=== PATIENT | female | born 1995 | race African-American/Black ===

== ENCOUNTER 2020-05-19 23:02 | Emergency (ER) | payer OTHER ==
[2020-05-19 23:16] VITALS: BP 126/74
--- NOTE | 2020-05-20 00:09 | ER Document Report ---
HPI - HPI Time Seen by Provider: 05/19/20 23:58 Context: Patient is a 24-year-old female who comes emergency department for chief complaint of a generalized rash over her legs mainly over the thighs, arms mainly over the flexural surfaces, and over the abdomen and back. Rash is also slightly over the chest but not over the head/face. Rash is very itchy and has been present intermittently since late (over 6 weeks ago) but is worse now. Patient denies any other complaints although she denies having any rash similar to this in the past. She is not on any daily medications. She is currently breast-feeding. Past Medical History - General Information source: Patient - Social History Smoking Status: Never Smoker Frequency of alcohol use: None Drug Abuse: None Lives with: Family Family History: Reviewed & Not Pertinent - Medical History Medical History: Negative Surgical Hx: Negative - Immunizations Immunizations up to date: Yes Hx Diphtheria, Pertussis, Tetanus Vaccination: Yes Vertical Provider Document - CONSTITUTIONAL General Appearance: WD/WN, No Apparent Distress - HEENT HEENT: Atraumatic, Normal ENT Exam, Normocephalic - NECK Neck: Normal Inspection - RESPIRATORY Respiratory: Breath Sounds Normal, No Respiratory Distress - CARDIOVASCULAR Cardiovascular: Regular Rate, Regular Rhythm - GI/ABDOMEN Gastrointestinal: Abdomen Soft, Abdomen Non-Tender. negative: Abdomen Tender - BACK Back: Normal Inspection - MUSCULOSKELETAL/EXTREMETIES Musculoskeletal/Extremeties: MAEW, FROM, Non-Tender - NEURO Level of Consciousness: Awake, Alert, Appropriate Motor/Sensory: No Motor Deficit, No Sensory Deficit - DERM Integumentary: Warm, Dry. negative: No Rash - Scattered rash in both dried and vesicular appearance located over the flexural surface of the forearms extending up to the hands, medial thighs, over the chest and back. No purulent aspect noted, no induration or fluctuance, no evidence of cellulitis or necrotizing fasciitis noted. Course - Re-evaluation Re-evalutation: Patient with scattered rash over the extremities over the flexural surface and medial thighs, also slightly over the chest and back. There is no evidence of this over the face. This does include the hands. Patient with a daughter with similar rash as well. Nonspecific, possibly atopic dermatitis, however because of the location, for member also having this, discussed with Dr. Martinez and she recommends permethrin rinse and dermatologic follow-up. Patient also be given antihistamines although I did discuss precautions in regards to breast-feeding, she only use this for a short period of time. Discussed expectations and return precautions. Mom states appreciation and agreement. - Vital Signs Vital signs: Temp Pulse Resp BP Pulse Ox 99.0 F 69 18 126/74 H 98 05/19/20 23:14 05/19/20 23:14 05/19/20 23:14 05/19/20 23:14 05/19/20 23:14 Discharge - Discharge Clinical Impression: Rash Condition: Stable Disposition: HOME, SELF-CARE Additional Instructions: Your rash is suspicious for scabies and we are covering you for this. You can also take antihistamines as prescribed for 1 week only (while breast-feeding). Follow-up with the dermatology referral if symptoms continue. Return if you worsen including developing or spreading redness, fever, or any other concerning or worsening symptoms. Prescriptions: Permethrin [Acticin 5% Cream 60 gm] 1 applic TP ASDIR PRN #1 tube PRN Reason: Cetirizine HCl 10 mg PO DAILY PRN 14 Days #14 tablet PRN Reason: Famotidine [Pepcid 20 mg Tablet] 20 mg PO BID #20 tablet Referrals: DARRYN CARTER DO [ACTIVE STAFF] - Follow up in 3-5 days
== END 2020-05-20 00:55 | disposition home or self-care (01) ==
LOC: ER 23:02
DX: R21 Rash and other nonspecific skin eruption (principal)
CPT/HCPCS: 99283